=== PATIENT | female | born 1965 | race Caucasian/White ===

== ENCOUNTER 2016-10-10 13:33 | Emergency (ER) | payer SELFPAY ==
[~2016-10-10] VITALS: Ht 160 cm; Wt 81.6 kg
[2016-10-10 16:19] VITALS: BP 128/73
== END 2016-10-10 16:19 | disposition home or self-care (01) ==
LOC: ED 13:33
DX: S39.012A Strain of muscle, fascia and tendon of lower back, initial encounter (principal); S70.02XA Contusion of left hip, initial encounter; Z79.899 Other long term (current) drug therapy; W19.XXXA Unspecified fall, initial encounter; Y93.89 Activity, other specified; Y92.89 Other specified places as the place of occurrence of the external cause; Y99.8 Other external cause status
CPT/HCPCS: J3010

== ENCOUNTER 2017-08-15 23:19 | Emergency (ER) | payer SELFPAY ==
[~2017-08-15] VITALS: Ht 154.9 cm; Wt 83.1 kg
[2017-08-15 23:31] VITALS: BP 127/54; Ht 154.9 cm; Wt 83.1 kg
== END 2017-08-16 00:40 | disposition left against medical advice (07) ==
LOC: ED 23:19
DX: Z53.21 Procedure and treatment not carried out due to patient leaving prior to being seen by health care provider (principal)

== ENCOUNTER 2019-03-14 01:07 | Emergency (ER) | payer MEDICAID ==
[~2019-03-14] VITALS: Ht 162.6 cm; Wt 79.8 kg
[2019-03-14 01:17] VITALS: Ht 162.6 cm; Wt 79.8 kg
[2019-03-14 01:50] LABS: BASOPHIL % 0.9 % (0-2); PLATELET COUNT 156 x10^3mcL (130-400); RED CELL DISTRIBUTION WIDTH 13.2 % (11.5-14.5)
[2019-03-14 02:01] LABS: CALCIUM 8.6 mg/dL (8.5-10.1); CARBON DIOXIDE 27.8 mmol/L (21-32); CHLORIDE SERUM 106 mmol/L (98-107); CREATININE SERUM 0.8 mg/dL (0.6-1.0); GFR1 > 60 mL/min; GLUCOSE SERUM 108 mg/dL (74-106); POTASSIUM SERUM 3.3 mmol/L (3.5-5.1); SODIUM SERUM 143 mmol/L (136-145)
[2019-03-14 02:05] LABS: ALBUMIN 3.7 g/dL (3.4-5.0); ALKALINE PHOSPHATASE 119 U/L (46-116); ALT/SGPT 24 U/L (14-59); AST/SGOT 66 U/L (15-37); BILIRUBIN TOTAL 0.66 mg/dL (0.20-1.00); LIPASE 287 IU/L (73-393); TOTAL PROTEIN, SERUM 7.1 g/dL (6.4-8.2)
[2019-03-14 03:35] LABS: UA SPECIFIC GRAVITY 1.025 (1.005-1.035); microscopic required? YES; urine erythrocyte 3+ (NEGATIVE)
[2019-03-14 06:57] VITALS: BP 99/50
== END 2019-03-14 06:57 | disposition home or self-care (01) ==
LOC: ED 01:07
PROVIDERS: Emergency Medicine
DX: K59.00 Constipation, unspecified (principal); F17.210 Nicotine dependence, cigarettes, uncomplicated; Z88.6 Allergy status to analgesic agent
CPT/HCPCS: 99406; J2060; J2405; J3010; J3490; J7030; Q0092